=== PATIENT | female | born 1965 | race Caucasian/White ===

== ENCOUNTER 2025-03-07 16:21 | Outpatient (CLI) | payer SELFPAY | END 2025-03-07 16:22 | disposition home or self-care (01) | LOC: LBO 16:21 | DX: Z02.1 Encounter for pre-employment examination (principal) | CPT/HCPCS: 36415; 86765 ==

== ENCOUNTER 2025-06-05 14:28 | Outpatient (REF) | payer SELFPAY ==
[2025-06-07 11:02] LABS: Rubella IgG Ab (UVM) Positive (See Note)
== END 2025-06-05 14:29 | disposition home or self-care (01) ==
LOC: LBO 14:28
DX: Z02.1 Encounter for pre-employment examination (principal)
CPT/HCPCS: 36415; 86735; 86762